=== PATIENT | female | born 1955 | race Caucasian/White ===

== ENCOUNTER → 2018-03-08 09:17 | Outpatient (CLI) | payer BC, SELFPAY ==
[2018-03-08 10:28] LABS: AST(SGOT) 22 U/L (15-37); Alanine Aminotransfer ALT/SGPT 34 U/L (13-56); Alkaline Phosphatase 120 U/L (45-117); Bilirubin, Direct 0.18 mg/dL (0.00-0.30); Cholesterol 215 mg/dL (200); Globulin 4.4 g/dL (2.2-4.2); High Density Lipoprotein 54 mg/dL; Protein, Total 8.4 g/dL (6.4-8.2); Triglycerides 242 mg/dL; Very Low Density Lipoprotein 48 mg/dL (5-40)
== END ==
PROVIDERS: Family Provider Family Medicine; PCP Family Medicine; Visit Provider Nurse Practitioner Family
DX: I25.10 Atherosclerotic heart disease of native coronary artery without angina pectoris (principal); I42.8 Other cardiomyopathies
CPT/HCPCS: 36415; 80061; 80076

== ENCOUNTER → 2018-04-06 12:43 | Outpatient (CLI) | payer BC, SELFPAY ==
--- NOTE | 2018-04-06 12:44 | ECHOD_ITS ---
Reason For Study: CHF Procedure This was a 2D Doppler, Color Flow transthoracic echocardiogram. Contrast injection was performed. Left Ventricle Normal size and thickness. The estimated ejection fraction is 45 %. Stage 1 diastolic dysfunction. There is moderate global hypokinesis of the left ventricle. Right Ventricle Normal size and thickness. Normal systolic function. Atria Normal left atrium. Normal right atrium. Normal atrial septum. Mitral Valve The mitral valve is structurally normal. No prolapse or stenosis seen. Tricuspid Valve Normal tricuspid valve. Trivial tricuspid valve insufficiency. Right ventricular systolic pressure estimated to be 29 mmHg. Aortic Valve Trisinus/trileaflet aortic valve. Mild focal aortic valve thickening. Mild (1+) aortic valve insufficiency. Pulmonic Valve Normal pulmonic valve. Great Vessels Mildly dilated aortic root. Normal arch. Normal inferior vena cava. Inferior vena cava collapse with sniff. Pericardium/Pleural No pericardial effusion. Medication 22 gauge I.V. with prn adaptor inserted into right arm. Diluted definity 5ml given slow IV push to enhance endocardial definition. MMode/2D Measurements & Calculations LVIDd: 4.7 cm IVSd: 1.0 cm Ao root diam: 3.5 cm LVIDs: 3.9 cm LVPWd: 1.1 cm LA dimension: 3.3 cm RVDd: 2.8 cm FS: 18.2 % LAV(MOD-bp): 32.3 ml EDV(MOD-sp4): 107.2 ml EDV(MOD-sp2): 60.2 ml LAV(MOD-bp) Indexed: 17.9 ml/m2 ESV(MOD-sp4): 48.0 ml EF(MOD-sp2): 55.8 % LAV(MOD-sp2): 39.7 ml EF(MOD-sp4): 55.2 % LAV(MOD-sp4): 24.0 ml SV(MOD-sp4): 59.2 ml SV(MOD-sp2): 33.6 ml LA A4 area: 11.5 cm2 RA A4 area: 12.9 cm2 Doppler Measurements & Calculations MV E max sohan: 62.1 cm/sec Lat Peak E' Sohan: 7.7 cm/sec Med Peak E' Sohan: 4.1 cm/sec MV A max sohan: 133.3 cm/sec E/E' lat: 8.1 E/E' med: 15.3 MV E/A: 0.47 Ao V2 max: 166.1 cm/sec AI max sohan: 465.2 cm/sec LV V1 max: 93.1 cm/sec Ao max P.0 mmHg AI max P.6 mmHg LV V1 max P.5 mmHg AI dec slope: 276.5 cm/sec2 AI P1/2t: 492.8 msec PA V2 max: 82.6 cm/sec TR max sohan: 240.2 cm/sec TR max P.3 mmHg Interpretation Summary The estimated ejection fraction is 45 %. Stage 1 diastolic dysfunction. There is moderate global hypokinesis of the left ventricle. Trivial tricuspid valve insufficiency. Right ventricular systolic pressure estimated to be 29 mmHg. Mild (1+) aortic valve insufficiency. Mildly dilated aortic root. Compared to echo report dated 01/12/2017, LV function has markedly improved from 10-15% to 45%. RVSP has improved from 34 to 29 mm Hg. The study was technically difficult. Contrast injection was performed. Ordering Physician: Jero Gallegos Referring Physician: SAVANNAH VAN Performed By: Ilana Paris RDCS, RVT
== END ==
PROVIDERS: Family Provider Family Medicine; PCP Family Medicine; Visit Provider Nurse Practitioner Family
DX: I42.8 Other cardiomyopathies (principal); I51.3 Intracardiac thrombosis, not elsewhere classified; I25.10 Atherosclerotic heart disease of native coronary artery without angina pectoris; I38 Endocarditis, valve unspecified
CPT/HCPCS: 93306; Q9957; A4216; C8929